=== PATIENT | female | born 1990 | race African-American/Black ===

== ENCOUNTER 2023-04-28 23:27 | Emergency (ER) | payer SELFPAY ==
[~2023-04-28] VITALS: Ht 152.4 cm; Wt 46.0 kg
[2023-04-29 00:04] VITALS: BP 121/80; PULSE 110; RESP 14; TEMP 98.2; O2SAT 98
[2023-04-29] MEDS ORDERED: NAPR-1176 MT (01:07)
== END 2023-04-29 03:10 | disposition home or self-care (01) ==
LOC: ER 23:27
DX: M54.16 Radiculopathy, lumbar region (principal)
CPT/HCPCS: 93971; 99284